=== PATIENT | male | born 1990 | race African-American/Black ===

== ENCOUNTER 2024-07-23 06:24 | Emergency (ER) | payer OTHER ==
[~2024-07-23] VITALS: Ht 185.4 cm; Wt 83.0 kg
[2024-07-23] MEDS ORDERED: IOHEXOL 9 MG/ML 500 ML BOTTLE PO ONE (06:45)
[2024-07-23] MEDS ORDERED: IOHEXOL 350 MG/ML 100 ML VIAL ONE (07:11)
[2024-07-23] MEDS ORDERED: SODIUM CHLORIDE 0.9% 100 ML ONE (07:11)
[2024-07-23 07:49] VITALS: TEMP 98
[2024-07-23] MEDS: MORPHINE SULFATE 4 MG/ML SYRINGE IVP ONE (08:16)
[2024-07-23] MEDS: ONDANSETRON HCL 4 MG/2 ML VIAL IVP ONE (08:16)
[2024-07-23] MEDS: SODIUM CHLORIDE 0.9% 2,000 ML IV ONE (08:17)
[2024-07-23] MEDS: KETOROLAC TROMETHAMINE 30 MG/ML VIAL IVP ONE (08:17)
[2024-07-23 08:45] LABS: BASOPHILS % (AUTO) 0.3 % (0.0-2.0); EOSINOPHILS % (AUTO) 0.6 % (1.0-6.0); HEMATOCRIT 39.6 % (41-53); HEMOGLOBIN 13.3 g/dL (13.5-17.5); LYMPHOCYTES # (AUTO) 0.7 K/uL (1.0-4.8); LYMPHOCYTES % (AUTO) 10.1 % (22.0-44.0); MEAN CORPUSCULAR HEMOGLOBIN 30.7 pg (26.0-34.0); MEAN CORPUSCULAR HGB CONC 33.7 G/dL (31.0-37.0); MEAN CORPUSCULAR VOLUME 91 fL (80-100); MONOCYTES # (AUTO) 0.3 K/uL (0.1-1.0); MONOCYTES % (AUTO) 4.5 % (2.0-9.0); NEUTROPHILS # (AUTO) 6.2 K/uL (1.8-7.7); NEUTROPHILS % (AUTO) 84.5 % (40.0-70.0); PLATELET COUNT (AUTO) 181 K/uL (150-450); RED BLOOD CELL COUNT(AUTO) 4.34 MIL/uL (4.50-5.90); RED CELL DISTRIBUTION WIDTH 12.8 % (11.5-14.5); WHITE BLOOD COUNT (AUTO) 7.3 K/uL (4.5-11.0)
[2024-07-23 08:55] LABS: ANION GAP 7 mmol/L (8-16); CALCIUM, TOTAL 9.3 mg/dL (8.8-10.5); CARBON DIOXIDE 29 mmol/L (22-29); CHLORIDE 103 mmol/L (98-107); CREATININE 1.23 mg/dL (0.60-1.30); GLOMERULAR FILTR. RATE CALC > 60 mL/min (>60); GLUCOSE,RANDOM 98 mg/dL (70-110); POTASSIUM 3.9 mmol/L (3.5-5.1); SODIUM SERUM 139 mmol/L (136-145); UREA NITROGEN, BLOOD 10 mg/dL (7-18)
[2024-07-23 09:00] LABS: ALANINE AMINOTRANSFERASE 19 U/L (12-78); ALBUMIN 3.7 g/dL (3.4-5.0); ALKALINE PHOSPHATASE 49 U/L (46-116); ASPARTATE AMINOTRANSFERASE 21 U/L (15-37); BILIRUBIN,TOTAL 0.8 mg/dL (0.1-1.0); LIPASE 31 U/L (16-77); TOTAL PROTEIN, SERUM 7.1 g/dL (6.4-8.2)
[2024-07-23 09:03] LABS: LACTIC ACID 0.8 mmol/L (0.4-2.0)
[2024-07-23 09:21] LABS: APPEARANCE,URINE CLEAR (CLEAR); BILIRUBIN,URINE NEGATIVE (NEGATIVE); COLOR,URINE LIGHT YELLOW (YELLOW); GLUCOSE, URINE (UA) NEGATIVE (NEGATIVE); KETONES,URINE NEGATIVE (NEGATIVE); LEUKOCYTE ESTERASE ,URINE NEGATIVE (NEGATIVE); NITRATE,URINE NEGATIVE (NEGATIVE); OCCULT BLOOD,URINE NEGATIVE (NEGATIVE); PROTEIN,URINE TRACE mg/dL (NEGATIVE); SPECIFIC GRAVITIY, URINE 1.024 (1.003-1.030); UROBILINOGEN,URINE <=1.0 mg/dL (<=1.0)
[2024-07-23 09:35] LABS: BACTERIA,URINE None Seen /HPF (None Seen); RBC,URINE None Seen /HPF (0-2); SQUAMOUS EPITHELIAL CELL,UR Few /LPF (None Seen); WBC,URINE 0-2 /HPF (0-5)
[2024-07-23 10:00] VITALS: BP 145/95; PULSE 75; RESP 18; O2SAT 100
== END 2024-07-23 10:51 | disposition home or self-care (01) ==
LOC: EMS 06:26
DX: R10.84 Generalized abdominal pain (principal)
CPT/HCPCS: 99284; 74176; 96360; 80048; 80076; 81001; 83605; 83690; 85025; 36415; Q9967; J7030; J7050